=== PATIENT | female | born 1955 | race Caucasian/White ===

== ENCOUNTER 2018-08-14 08:23 | Day surgery (SDC) | payer OTHER ==
[2018-08-14] MEDS ORDERED: MIDAZOLAM 1 MG/ML 2 ML INJ (10:11)
[2018-08-14] MEDS ORDERED: FENTAnyl 50 MCG/ML VIAL (10:11)
== END 2018-08-14 12:36 | disposition home or self-care (01) ==
LOC: GIL 08:23
DX: Z12.11 Encounter for screening for malignant neoplasm of colon (principal); K64.8 Other hemorrhoids; K57.30 Diverticulosis of large intestine without perforation or abscess without bleeding
CPT/HCPCS: 45378

== ENCOUNTER 2018-10-11 12:07 | Emergency (ER) | payer OTHER ==
[2018-10-11] MEDS: KETOROLAC 30 MG INJ IM (14:45)
== END 2018-10-11 14:52 | disposition home or self-care (01) ==
LOC: FTE 12:07
DX: M79.605 Pain in left leg (principal); I10 Essential (primary) hypertension
CPT/HCPCS: 73510; 73550; 96372; 99284-25